=== PATIENT | female | born 1955 | race American Indian/Alaskan Native ===

== ENCOUNTER 2018-01-16 08:14 | Emergency (ER) | payer SELFPAY ==
--- NOTE | 2018-01-16 08:51 | Emergency Department Report ---
ED Psych HPI - General Chief Complaint: Psych Stated Complaint: GENERAL WEAKNESS Time Seen by Provider: 01/16/18 08:42 Source: patient, EMS Mode of arrival: Ambulatory - History of Present Illness Initial Comments: Patient is 62 years old female with history of schizophrenia and bipolar disorder. Patient brought to the ER for evaluation of mental health. Patient pulled off her clothes this and came into the ER waiting area completely naked. Patient is delusional and paranoid. She denied any suicidal or homicidal ideation. Patient also denied any visual or auditory hallucination. MD Complaint: altered mental status - Related Data Allergies Allergy/AdvReac Type Severity Reaction Status Date / Time Unable to Assess Allergy Unverified 01/16/18 08:35 ED Review of Systems ROS: Stated complaint: GENERAL WEAKNESS Other details as noted in HPI Comment: All other systems reviewed and negative Respiratory: denies: cough, shortness of breath, SOB with exertion Cardiovascular: denies: chest pain, palpitations Gastrointestinal: denies: abdominal pain, nausea, diarrhea ED Past Medical Hx - Past Medical History Previous Medical History?: Yes Hx Psychiatric Treatment: Yes - Surgical History Additional Surgical History: Refuse to answer - Social History Smoking Status: Never Smoker ED Physical Exam - General Limitations: No Limitations General appearance: alert, anxious, other (agitated) - Head Head exam: Present: atraumatic, normocephalic, normal inspection - ENT ENT exam: Present: normal exam, normal orophraynx, mucous membranes moist - Neck Neck exam: Present: normal inspection, full ROM. Absent: tenderness, meningismus, lymphadenopathy - Respiratory Respiratory exam: Present: normal lung sounds bilaterally. Absent: respiratory distress, wheezes, rales, rhonchi, chest wall tenderness, accessory muscle use, decreased breath sounds, prolonged expiratory - Cardiovascular Cardiovascular Exam: Present: regular rate, normal rhythm, normal heart sounds - GI/Abdominal GI/Abdominal exam: Present: soft, normal bowel sounds. Absent: distended, tenderness, guarding, rebound, rigid, organomegaly, mass, bruit, pulsatile mass - Extremities Exam Extremities exam: Present: normal inspection, full ROM, normal capillary refill - Back Exam Back exam: Present: normal inspection, full ROM - Neurological Exam Neurological exam: Present: alert, oriented X3, CN II-XII intact, normal gait, reflexes normal. Absent: abnormal gait, motor sensory deficit - Psychiatric Psychiatric exam: Present: agitated, anxious, manic. Absent: homicidal ideation , suicidal ideation - Skin Skin exam: Present: warm, intact, normal color ED Course Vital Signs 01/16/18 08:24 Temperature 97.8 F Pulse Rate 96 H Respiratory 18 Rate Blood Pressure 130/106 O2 Sat by Pulse 99 Oximetry ED Medical Decision Making - Lab Data Result diagrams: 01/16/18 08:52 01/16/18 08:52 Critical care attestation.: If time is entered above; I have spent that time in minutes in the direct care of this critically ill patient, excluding procedure time. ED Disposition Clinical Impression: Acute psychosis Disposition: DC/TX-65 PSY HOSP/PSY UNIT Is pt being admited?: No Condition: Stable
[2018-01-16 09:12] LABS: Basophils # (Auto) 0.1 K/mm3 (0.0-0.1); Basophils % (Auto) 0.6 % (0.0-1.8); Eosinophils # (Auto) 0.2 K/mm3 (0.0-0.4); Eosinophils % (Auto) 1.8 % (0.0-4.3); Hematocrit 52.7 % (30.3-42.9); Lymphocytes # (Auto) 2.3 K/mm3 (1.2-5.4); Lymphocytes % (Auto) 27.9 % (13.4-35.0); Mean Corpuscular HGB Conc 32 % (30-34); Mean Corpuscular Hemoglobin 28 pg (28-32); Mean Corpuscular Volume 86 fl (79-97); Monocytes # (Auto) 0.6 K/mm3 (0.0-0.8); Monocytes % (Auto) 7.7 % (0.0-7.3); Platelet Count 252 K/mm3 (140-440); Red Blood Count 6.17 M/mm3 (3.65-5.03); Red Cell Distribution Width 15.4 % (13.2-15.2)
[2018-01-16 09:27] LABS: BUN/Creatinine Ratio 25; Blood Urea Nitrogen 15 mg/dL (7-17); Calcium 9.7 mg/dL (8.4-10.2); Hemolysis Index 8
[2018-01-17 03:08] LABS: Bilirubin,Urine NEG (Negative); Blood,Urine MOD (Negative); Color,Urine Amber (Yellow); Hyaline Casts,Urine 14 /LPF; Mucus,Urine 2+ /HPF; Urobilinogen,Urine < 2.0 mg/dL (<2.0)
[2018-01-17 03:13] LABS: Amphetamine Screen,Urine PRESUMPTIVE NEGATIVE; Benzodiazepines Screen,Urine PRESUMPTIVE NEGATIVE; Cannabinoid Screen,Urine PRESUMPTIVE NEGATIVE; Cocaine Screen,Urine PRESUMPTIVE NEGATIVE; Methadone Screen,Urine PRESUMPTIVE NEGATIVE; Opiate Screen,Urine PRESUMPTIVE NEGATIVE
--- NOTE | 2018-01-17 17:21 | Consultation ---
History of Present Illness - Reason for Consult Consult date: 01/17/18 Reason for consult: psychiatric Requesting physician: BRODIE PEDRAZA - Chief Complaint Chief complaint: Altered mental status - History of Present Psychiatric Illness 62-year-old female with past psychiatric history of bipolar disorder and schizophrenia was brought to the emergency room for mental health evaluation. Per ER records, patient presented with bizarre behavior after she came to the emergency room including removing her clothes in the emergency room lobby, and also later defecating on the lottery chairs. Patient stated that she was loitering around [employer] parking lot, and somebody called the ambulance. Patient stated "[place] [facility] [place] At the time of presentation to the ER, patient was disheveled with grass in her hair and poor hygiene and grooming. Patient did state that she has been walking around in the last 2 days after she was unable to pay for the hotel that she was staying at. She also reported that she had run out of her medications which include Lexapro and Abilify and trazodone about 2 weeks ago. At this time, patient denied any auditory hallucinations and denied any paranoia and denies any current suicidal or homicidal ideations. She did endorse feeling sad. However she did appear disorganized, with loose associations and appeared to be responding to internal stimuli. Medications and Allergies Allergies Allergy/AdvReac Type Severity Reaction Status Date / Time Unable to Assess Allergy Unverified 01/16/18 08:35 Home Medications Medication Instructions Recorded Confirmed Last Taken Type Unobtainable 01/16/18 01/16/18 Unknown History Past psychiatric history - Past Medical History Past Medical History: other (hypertension) - past Psychiatric treatment and history Psych: Bipolar, Psychosis, Schizophrenia psychiatric treatment history: Patient reported that she has been hospitalized at [facility] and recently at another psychiatric facility in [facility]. She states she has outpatient psychiatrist in [facility]. She has been on many psychotropic medications in the past, and Zyprexa worked the best. Has not been compliant with her psychotropic medications which are prescribed to her recently, namely Lexapro, Abilify and trazodone, and the last time she took them was about 2 weeks ago. - Social History Social history: Lives alone, other (homeless. Patient smokes half a pack of cigarettes per day. Drinks alcohol occasionally. Denies any cannabis or any other drug usage.) Mental Status Exam - Vital signs Last Vital Signs Temp 99.4 F 01/17/18 10:00 Pulse 89 01/17/18 10:00 Resp 18 01/17/18 17:09 BP 124/73 01/17/18 10:00 Pulse Ox 100 01/17/18 10:00 - Exam Orientation: time, person Affect: flat, depressed Mood: anxious Thought content: delusions, ideas of reference Thought Process: Loose Associations, Disorganized Perceptions: none Speech: slow Concentration: distractible Motor activity: normal Level of consciousness: confused Memory: Remote Intact Sleep Symptoms: Difficulty Falling Asleep Interaction: irritable, apathetic Results Result Diagrams: 01/16/18 08:52 01/16/18 08:52 Abnormal lab results 01/16/18 Range/Units 23:14 Urine WBC (Auto) 62.0 H (0.0-6.0) /HPF U Epithel Cells (Auto) 109.0 H (0-13.0) /HPF All other labs normal. Assessment and Plan Assessment and plan: Assessment: 1) psychosis unspecified 2) rule out schizoaffective disorder 3) rule out bipolar disorder Plan: 1) continue 1013, as patient does not appear to be capable of taking care of herself. 2) will start the patient on Zyprexa 5 mg at bedtime to help with psychosis and trazodone 50 mg at bedtime to help with insomnia. 3) Will continue to monitor the patient.
[2018-01-17] MEDS: DESYREL PO SCH (22:27)
[2018-01-18] MEDS ORDERED: ZOFRAN ONE (20:28)
[2018-01-18] MEDS ORDERED: ZOFRAN IM ONE (21:04)
[2018-01-18] MEDS: DESYREL PO SCH (21:37)
--- NOTE | 2018-01-19 15:27 | Progress Note ---
Subjective - Reason for Consult Consult date: 01/19/18 Reason for consult: follow up - Chief Complaint Chief complaint: "I didn't want to go to a vacant house." "I didn't come here for psychiatry." 62-year-old female with past psychiatric history of bipolar disorder and schizophrenia was brought to the emergency room for mental health evaluation. She denies this. Per ER records, patient presented with bizarre behavior after she came to the emergency room including removing her clothes in the emergency room lobby, and also later defecating on the chairs. Today, she is uncooperative. She stated she wants to go back to her hotel room. She said she has a friend named Izzy but states we cannot speak with her. She is agitated and has been yelling and demanding. She is paranoid and disorganized in thought process. Per the record: Has not been compliant with her psychotropic medications which are prescribed to her recently, namely Lexapro, Abilify and trazodone, and the last time she took them was about 2 weeks ago. She took meds as ordered last night. Mental Status Exam - Vital signs Last Vital Signs Temp 99.1 F 01/19/18 10:00 Pulse 87 01/19/18 10:00 Resp 18 01/19/18 14:56 BP 116/75 01/19/18 10:00 Pulse Ox 98 01/19/18 14:56 - Exam Narrative exam: Orientation: time, person Affect: flat Mood: agitated Thought content: delusions Thought Process: Loose Associations, Disorganized Perceptions: denies Speech: loud Concentration: distractible Motor activity: normal Level of consciousness: alert Memory: Remote Intact Sleep Symptoms: Difficulty Falling Asleep Interaction: uncooperative Assessment and Plan Impression: 1) psychosis unspecified 2) rule out schizoaffective disorder 3) rule out bipolar disorder Plan: 1) continue 1013, as patient does not appear to be capable of taking care of herself. 2) Increase zyprexa 10 mg at bedtime to help with psychosis and trazodone 50 mg at bedtime to help with insomnia. 3) Will continue to monitor the patient.
[2018-01-19] MEDS: DESYREL PO SCH (22:58)
--- NOTE | 2018-01-20 18:25 | Progress Note ---
Subjective - Reason for Consult Consult date: 01/20/18 Reason for consult: follow up - Chief Complaint Chief complaint: "I didn't want my medicines changed." 62-year-old female with past psychiatric history of bipolar disorder and schizophrenia was brought to the emergency room for mental health evaluation. Her nurse reports she initially refused her zyprexa but took it today. She is reported to be less agitated. She was able to participate in interview today. She reports her medications of abilify 20mg, lexapro 10mg daily, and trazodone 50mg hs. She states she had run out of meds x 1-2 weeks prior to this ER visit. She states she was treated in [facility] 1 month ago, where her medications were increased. She does not want them changed. She acknowledged feeling better. She denies SI/HI. She denies AVH. She was observed dancing in the doorway but not agitation observed. She is interacting appropriately with peers. She reports sleep and appetite is fair. Mental Status Exam - Vital signs Last Vital Signs Temp 97.6 F 01/20/18 12:50 Pulse 89 01/20/18 12:50 Resp 18 01/20/18 12:50 BP 132/82 01/20/18 12:50 Pulse Ox 99 01/20/18 12:50 - Exam Narrative exam: Orientation: time, person, place Affect: constricted Mood: irritable Thought content: denies SI/HI. Thought Process: circumstantial Perceptions: denies Speech: regular rate Concentration: distractible Motor activity: normal Level of consciousness: alert Memory: Remote Intact Sleep Symptoms: fair Interaction: cooperative Assessment and Plan Impression: 1) psychosis unspecified 2) rule out schizoaffective disorder 3) rule out bipolar disorder Mental status appears to be improving. [facility] Plan: 1) continue 1013, as patient does not appear to be capable of taking care of herself. 2) Change zyprexa to abilify. She states the abilify was working well for her. Continue trazodone 50 mg at bedtime to help with insomnia. Hold lexapro. r/o ivana 3) Will continue to monitor the patient.
[2018-01-20] MEDS ORDERED: PEPCID PO SCH (19:00)
[2018-01-20] MEDS: DESYREL PO SCH (23:06)
--- NOTE | 2018-01-21 10:48 | Progress Note ---
Subjective - Reason for Consult Consult date: 01/21/18 Reason for consult: Psychiatry Follow-up - Chief Complaint Chief complaint: "I want to go" 62-year-old female with past psychiatric history of bipolar disorder and schizophrenia was brought to the emergency room for mental health evaluation. Today the patient is loud and angry during the assessment. Upon my arrival to her room, she was observed staring at the wall. She was asked how she ended up at the hospital, she stated, "I wanted a cigarette at [facility] and I was brought to the hospital." She is evasive throughout the interview. She denies SI/HI's and VH's. She would not confirm or deny AVH's when asked. No indications of side effects of her medications. Mental Status Exam - Vital signs Last Vital Signs Temp 97.6 F 01/20/18 12:50 Pulse 89 01/20/18 12:50 Resp 18 01/20/18 12:50 BP 132/82 01/20/18 12:50 Pulse Ox 99 01/20/18 12:50 - Exam Narrative exam: MSE: Appearance: angry Behavior: regular eye contact Speech: regular rate and loud tone Mood: evasive Affect: flat Thought Process: circumstantial Thought Content: denies SI/HI's, would not confirm or deny AVH's Motor Activity: ambulating Cognition: A/O x 3 Insight: poor Judgment: poor Assessment and Plan Impression: Unspecified Psychosis. Today the patient is loud and angry during the assessment. DDx: R/o Schizoaffective DO, R/O Schizophrenia, R/O Bipolar DO Recommendation/Plan: Continue 1013 with placement to inpatient to psy services. Continue Abilify 15 mg PO daily for psychosis and Trazodone 50 mg HS for sleep. Discussed possible metabolic side effects of Abilify with patient. Discussed possible suicidality/medcation induced ivana with patient reference Trazodone. The patient has elevated WBC's (26)/Epithel Cells (109) in her urine per her admission 01/16/2018. Her assigned nurse was informed.
[2018-01-21] MEDS: ABILIFY PO SCH (13:11)
[2018-01-21] MEDS ORDERED: VERSED IM ONE ×3 (15:19→19:00)
[2018-01-21] MEDS: DESYREL PO SCH (22:04)
--- NOTE | 2018-01-22 11:58 | Progress Note ---
Subjective - Reason for Consult Consult date: 01/22/18 Reason for consult: Psychiatry Follow-up - Chief Complaint Chief complaint: "I am mad at myself" 62-year-old female with past psychiatric history of bipolar disorder and schizophrenia was brought to the emergency room for mental health evaluation. Today the patient is calm and cooperative during the assessment. She stated being "mad" at herself because of the way she ended up at the ER. She stated that she could not return to her hotel because she had a balance due, so she decided to go to [facility]. She stated that she slept there for 3 days. She is adamant that she asked for a cigarette and the EMS will called. Once the EMS arrived she admitted to being upset and refused to talk with them, so she was brought to the ER. Also, she stated that she lost her ID while walking to [facility]. She stated that [facility]. She stated that she was angry yesterday, because she felt "embarrassed." She denies SI/HI's and AVH's. She denies any side effects of her medications. Mental Status Exam - Vital signs Last Vital Signs Temp 98.2 F 01/21/18 13:48 Pulse 82 01/21/18 22:00 Resp 18 01/22/18 04:00 BP 125/71 01/21/18 22:00 Pulse Ox 98 01/22/18 04:00 - Exam Narrative exam: MSE: Appearance: calm, cooperative Behavior: regular eye contact Speech: regular rate and tone Mood: "better" Affect: congruent to mood Thought Process: linear Thought Content: denies SI/HI's and AVH's Motor Activity: ambulatory Cognition: A/O x 3 Insight: appropriate Judgment: appropriate Assessment and Plan Impression: Unspecified Psychosis. Today the patient is calm and cooperative during the assessment. DDx: R/O Schizoaffective DO, R/O Schizophrenia, R/O Bipolar DO Recommendation/Plan: Rescind 1013. The patient can [facility] up [facility]. Continue Abilify 15 mg PO daily and Trazodone 50 mg HS. Discussed possible metabolic side effects of Abilify with patient. Discussed possible suicidality/medcation induced ivana with patient reference Trazodone.
[2018-01-22] MEDS: ABILIFY PO SCH (14:15)
--- NOTE | 2018-01-22 15:06 | Event Note ---
Date: 01/22/18 The patient's 1013 has been discontinued by the psychiatry team. The patient is pleasant, calm and cooperative, not a homicidal nor suicidal. She endorses no medical complaints at this time. She indicates she is going to follow up at the [facility]. She is given a 2 week refill on her trazodone and Abilify. She will be discharged at this time. Vital Signs 01/16/18 01/16/18 01/17/18 08:24 19:30 10:00 Temperature 97.8 F 99.5 F 99.4 F Pulse Rate 96 H 82 89 Respiratory 18 18 18 Rate Blood Pressure 130/106 Blood Pressure 126/74 124/73 [Left] O2 Sat by Pulse 99 98 100 Oximetry 01/17/18 01/17/18 01/17/18 17:09 17:31 20:11 Temperature 98.8 F Pulse Rate 70 Respiratory 18 18 18 Rate Blood Pressure 137/68 Blood Pressure [Left] O2 Sat by Pulse 98 100 Oximetry 01/18/18 01/18/18 01/18/18 10:00 11:19 19:24 Temperature 98.9 F 99.3 F Pulse Rate 84 78 Respiratory 16 18 18 Rate Blood Pressure 131/75 Blood Pressure 117/74 [Left] O2 Sat by Pulse 97 100 98 Oximetry 01/19/18 01/19/18 01/19/18 10:00 14:56 20:18 Temperature 99.1 F 98.3 F Pulse Rate 87 62 Respiratory 18 18 18 Rate Blood Pressure 124/60 Blood Pressure 116/75 [Left] O2 Sat by Pulse 98 98 98 Oximetry 01/20/18 01/21/18 01/21/18 12:50 13:48 17:52 Temperature 97.6 F 98.2 F Pulse Rate 89 85 Respiratory 18 18 Rate Blood Pressure Blood Pressure 132/82 134/64 [Left] O2 Sat by Pulse 99 96 96 Oximetry 01/21/18 01/22/18 01/22/18 22:00 04:00 13:43 Temperature Pulse Rate 82 Respiratory 18 18 18 Rate Blood Pressure Blood Pressure 125/71 [Left] O2 Sat by Pulse 98 98 98 Oximetry Lab Results 01/16/18 01/16/18 01/16/18 Range/Units 08:52 08:52 08:52 WBC (4.5-11.0) K/mm3 RBC (3.65-5.03) M/mm3 Hgb (10.1-14.3) gm/dl Hct (30.3-42.9) % MCV (79-97) fl MCH (28-32) pg MCHC (30-34) % RDW (13.2-15.2) % Plt Count (140-440) K/mm3 Lymph % (Auto) (13.4-35.0) % Isabella % (Auto) (0.0-7.3) % Eos % (Auto) (0.0-4.3) % Baso % (Auto) (0.0-1.8) % Lymph # (1.2-5.4) K/mm3 Isabella # (0.0-0.8) K/mm3 Eos # (0.0-0.4) K/mm3 Baso # (0.0-0.1) K/mm3 Seg Neutrophils % (40.0-70.0) % Seg Neutrophils # (1.8-7.7) K/mm3 Sodium 143 (137-145) mmol/L Potassium 3.5 L (3.6-5.0) mmol/L Chloride 100.8 (98-107) mmol/L Carbon Dioxide 27 (22-30) mmol/L Anion Gap 19 mmol/L BUN 15 (7-17) mg/dL Creatinine 0.6 L (0.7-1.2) mg/dL Estimated GFR > 60 ml/min BUN/Creatinine Ratio 25 % Glucose 128 H (65-100) mg/dL Calcium 9.7 (8.4-10.2) mg/dL Urine Color (Yellow) Urine Turbidity (Clear) Urine pH (5.0-7.0) Ur Specific Waldo (1.003-1.030) Urine Protein (Negative) mg/dL Urine Glucose (UA) (Negative) mg/dL Urine Ketones (Negative) mg/dL Urine Blood (Negative) Urine Nitrite (Negative) Urine Bilirubin (Negative) Urine Urobilinogen (<2.0) mg/dL Ur Leukocyte Esterase (Negative) Urine WBC (Auto) (0.0-6.0) /HPF Urine RBC (Auto) (0.0-6.0) /HPF U Epithel Cells (Auto) (0-13.0) /HPF Hyaline Casts /LPF Urine Mucus /HPF Salicylates < 0.3 L (2.8-20.0) mg/dL Urine Opiates Screen Urine Methadone Screen Acetaminophen < 5.0 L (10.0-30.0) ug/mL Ur Barbiturates Screen Ur Phencyclidine Scrn Ur Amphetamines Screen U Benzodiazepines Scrn Urine Cocaine Screen U Marijuana (THC) Screen Drugs of Abuse Note Plasma/Serum Alcohol (0-0.07) % 01/16/18 01/16/18 01/16/18 Range/Units 08:52 08:52 23:14 WBC 8.3 (4.5-11.0) K/mm3 RBC 6.17 H (3.65-5.03) M/mm3 Hgb 17.0 H (10.1-14.3) gm/dl Hct 52.7 H (30.3-42.9) % MCV 86 (79-97) fl MCH 28 (28-32) pg MCHC 32 (30-34) % RDW 15.4 H (13.2-15.2) % Plt Count 252 (140-440) K/mm3 Lymph % (Auto) 27.9 (13.4-35.0) % Isabella % (Auto) 7.7 H (0.0-7.3) % Eos % (Auto) 1.8 (0.0-4.3) % Baso % (Auto) 0.6 (0.0-1.8) % Lymph # 2.3 (1.2-5.4) K/mm3 Isabella # 0.6 (0.0-0.8) K/mm3 Eos # 0.2 (0.0-0.4) K/mm3 Baso # 0.1 (0.0-0.1) K/mm3 Seg Neutrophils % 62.0 (40.0-70.0) % Seg Neutrophils # 5.1 (1.8-7.7) K/mm3 Sodium (137-145) mmol/L Potassium (3.6-5.0) mmol/L Chloride (98-107) mmol/L Carbon Dioxide (22-30) mmol/L Anion Gap mmol/L BUN (7-17) mg/dL Creatinine (0.7-1.2) mg/dL Estimated GFR ml/min BUN/Creatinine Ratio % Glucose (65-100) mg/dL Calcium (8.4-10.2) mg/dL Urine Color Marian (Yellow) Urine Turbidity Cloudy (Clear) Urine pH 5.0 (5.0-7.0) Ur Specific Waldo 1.028 (1.003-1.030) Urine Protein 30 mg/dl (Negative) mg/dL Urine Glucose (UA) Neg (Negative) mg/dL Urine Ketones Neg (Negative) mg/dL Urine Blood Mod (Negative) Urine Nitrite Neg (Negative) Urine Bilirubin Neg (Negative) Urine Urobilinogen < 2.0 (<2.0) mg/dL Ur Leukocyte Esterase Mod (Negative) Urine WBC (Auto) 62.0 H (0.0-6.0) /HPF Urine RBC (Auto) 78.0 (0.0-6.0) /HPF U Epithel Cells (Auto) 109.0 H (0-13.0) /HPF Hyaline Casts 14 /LPF Urine Mucus 2+ /HPF Salicylates (2.8-20.0) mg/dL Urine Opiates Screen Urine Methadone Screen Acetaminophen (10.0-30.0) ug/mL Ur Barbiturates Screen Ur Phencyclidine Scrn Ur Amphetamines Screen U Benzodiazepines Scrn Urine Cocaine Screen U Marijuana (THC) Screen Drugs of Abuse Note Plasma/Serum Alcohol < 0.01 (0-0.07) % 01/16/18 Range/Units 23:14 WBC (4.5-11.0) K/mm3 RBC (3.65-5.03) M/mm3 Hgb (10.1-14.3) gm/dl Hct (30.3-42.9) % MCV (79-97) fl MCH (28-32) pg MCHC (30-34) % RDW (13.2-15.2) % Plt Count (140-440) K/mm3 Lymph % (Auto) (13.4-35.0) % Isabella % (Auto) (0.0-7.3) % Eos % (Auto) (0.0-4.3) % Baso % (Auto) (0.0-1.8) % Lymph # (1.2-5.4) K/mm3 Isabella # (0.0-0.8) K/mm3 Eos # (0.0-0.4) K/mm3 Baso # (0.0-0.1) K/mm3 Seg Neutrophils % (40.0-70.0) % Seg Neutrophils # (1.8-7.7) K/mm3 Sodium (137-145) mmol/L Potassium (3.6-5.0) mmol/L Chloride (98-107) mmol/L Carbon Dioxide (22-30) mmol/L Anion Gap mmol/L BUN (7-17) mg/dL Creatinine (0.7-1.2) mg/dL Estimated GFR ml/min BUN/Creatinine Ratio % Glucose (65-100) mg/dL Calcium (8.4-10.2) mg/dL Urine Color (Yellow) Urine Turbidity (Clear) Urine pH (5.0-7.0) Ur Specific Waldo (1.003-1.030) Urine Protein (Negative) mg/dL Urine Glucose (UA) (Negative) mg/dL Urine Ketones (Negative) mg/dL Urine Blood (Negative) Urine Nitrite (Negative) Urine Bilirubin (Negative) Urine Urobilinogen (<2.0) mg/dL Ur Leukocyte Esterase (Negative) Urine WBC (Auto) (0.0-6.0) /HPF Urine RBC (Auto) (0.0-6.0) /HPF U Epithel Cells (Auto) (0-13.0) /HPF Hyaline Casts /LPF Urine Mucus /HPF Salicylates (2.8-20.0) mg/dL Urine Opiates Screen Presumptive negative Urine Methadone Screen Presumptive negative Acetaminophen (10.0-30.0) ug/mL Ur Barbiturates Screen Presumptive negative Ur Phencyclidine Scrn Presumptive negative Ur Amphetamines Screen Presumptive negative U Benzodiazepines Scrn Presumptive negative Urine Cocaine Screen Presumptive negative U Marijuana (THC) Screen Presumptive negative Drugs of Abuse Note Disclamer Plasma/Serum Alcohol (0-0.07) %
[2018-01-22 15:33] VITALS: BP 129/99
== END 2018-01-22 15:38 | disposition home or self-care (01) ==
LOC: EEVIPCON 08:14 → ED 08:14
DX: F23 Brief psychotic disorder (principal); Z88.8 Allergy status to other drugs, medicaments and biological substances
CPT/HCPCS: 36415; 80048; 80307; 81001; 85025; 96372; 99284; G0480; J2250; J2405; 80320

== ENCOUNTER 2018-03-26 03:01 | Emergency (ER) | payer SELFPAY ==
[2018-03-26 04:49] LABS: Basophils % (Auto) 0.5 % (0.0-1.8); Eosinophils % (Auto) 0.2 % (0.0-4.3); Hematocrit 47.1 % (30.3-42.9); Hemoglobin 15.8 gm/dl (10.1-14.3); Lymphocytes # (Auto) 1.8 K/mm3 (1.2-5.4); Lymphocytes % (Auto) 19.5 % (13.4-35.0); Mean Corpuscular HGB Conc 34 % (30-34); Mean Corpuscular Hemoglobin 28 pg (28-32); Mean Corpuscular Volume 84 fl (79-97); Monocytes # (Auto) 0.8 K/mm3 (0.0-0.8); Monocytes % (Auto) 8.4 % (0.0-7.3); Platelet Count 237 K/mm3 (140-440); Red Blood Count 5.59 M/mm3 (3.65-5.03); Red Cell Distribution Width 14.8 % (13.2-15.2)
[2018-03-26 05:03] LABS: BUN/Creatinine Ratio 19; Blood Urea Nitrogen 13 mg/dL (7-17); Calcium 9.2 mg/dL (8.4-10.2); Hemolysis Index 2
[2018-03-26] MEDS ORDERED: NACL 0.9% 1000 ML 1,000 ML IV ONE (06:26)
[2018-03-26] MEDS ORDERED: ZOFRAN IV ONE (06:27)
[2018-03-26 06:55] LABS: Creatine Kinase MB 6.1 ng/mL (0.0-4.0)
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
[2018-03-26] MEDS ORDERED: DESYREL PO ONE ×2 (08:51→11:08)
[2018-03-26] MEDS ORDERED: TYLENOL PO PRN (08:52)
[2018-03-26] MEDS ORDERED: MILK OF MAGNESIA PO PRN (08:52)
[2018-03-26] MEDS ORDERED: ALUM-MAG HYDROX-SIMETH 200-200-20MG/5ML PO PRN (08:52)
[2018-03-26] MEDS: ABILIFY PO SCH (11:25)
[2018-03-26] MEDS ORDERED: GEODON IM ONE (15:23)
[2018-03-26] MEDS ORDERED: GEODON IM PRN (15:24)
[2018-03-27 04:29] LABS: Bacteria,Urine 2+ /HPF (Negative); Bilirubin,Urine NEG (Negative); Blood,Urine NEG (Negative); Color,Urine Yellow (Yellow); Mucus,Urine 3+ /HPF
[2018-03-27 04:44] LABS: Amphetamine Screen,Urine PRESUMPTIVE NEGATIVE; Benzodiazepines Screen,Urine PRESUMPTIVE NEGATIVE; Cannabinoid Screen,Urine PRESUMPTIVE NEGATIVE; Cocaine Screen,Urine PRESUMPTIVE NEGATIVE; Methadone Screen,Urine PRESUMPTIVE NEGATIVE; Opiate Screen,Urine PRESUMPTIVE NEGATIVE
[2018-03-27] MEDS: ABILIFY PO SCH ×2 (10:07→22:01)
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
[2018-03-27] MEDS ORDERED: ZOFRAN IM PRN (19:59)
[2018-03-27] MEDS ORDERED: DESYREL PO PRN (20:43)
[2018-03-28] MEDS: ABILIFY PO SCH ×2 (09:37→22:29)
--- NOTE | 2018-03-28 13:20 | Progress Note ---
Subjective - Reason for Consult Consult date: 03/28/18 Reason for consult: Psychiatry Follow-up - Chief Complaint Chief complaint: "[place]" 62-year-old female who presents to emergency room with psychosis. Today the patient is cooperative, but disorganized during the assessment. She is adamant that someone is stealing her money while being in the ER. She had to be redirected several times to keep her on topic. She stated, 'You don't understand , things will get hectic." She would not elaborate more when asked about her statement. She denies SI/HI's and AVH's. She denies any side effects of her medications. Mental Status Exam - Vital signs Last Vital Signs Temp 98.9 F 03/28/18 10:00 Pulse 86 03/28/18 10:00 Resp 18 03/28/18 10:00 BP 150/87 03/28/18 10:00 Pulse Ox 94 03/28/18 10:00 - Exam Narrative exam: MSE: Appearance: cooperative Behavior: regular eye contact Speech: regular rate and tone Mood: "okay" Affect: flat Thought Process: disorganized Thought Content: denies SI/HI's and AVH's, delusional Motor Activity: ambulatory Cognition: A/O x 3 Insight: poor Judgment: poor Assessment and Plan Impression: Unspecified Psychosis. Today the patient is cooperative, but disorganized during the assessment. DDx: Schizophrenia, R/O Bipolar DO Recommendation/Plan: Continue 1013 with placement to inpatient psy services. Continue Abilify 20 mg PO HS for mood/psychosis and Trazodone 50 mg PO HS PRN for sleep. Discussed possible metabolic side effects of Abilify with the patient. Discussed possible suicidality/medication induced ivana with the patient reference Trazodone.
[2018-03-28 20:32] VITALS: BP 144/81
--- NOTE | 2018-03-29 13:38 | Progress Note ---
Subjective - Reason for Consult Consult date: 03/29/18 Reason for consult: Psychiatry Follow-up - Chief Complaint Chief complaint: "I am so much better" 62-year-old female who presents to emergency room with psychosis. Today the patient is calm and cooperative during the assessment. She stated that she was upset and answered questions yesterday "inappropriately." She stated [facility]. She stated that she maybe homeless because she reside at a hotel. She denies SI/HI's and AVH's. She denies any side effects of her medications. Mental Status Exam - Vital signs Last Vital Signs Temp 98.9 F 03/28/18 19:30 Pulse 71 03/28/18 19:30 Resp 16 03/28/18 19:30 BP 144/81 03/28/18 19:30 Pulse Ox 96 03/28/18 19:30 - Exam Narrative exam: MSE: Appearance: calm, cooperative Behavior: regular eye contact Speech: regular rate and tone Mood: "okay" Affect: congruent to mood Thought Process: logical Thought Content: denies SI/HI's and AVH's Motor Activity: ambulatory Cognition: A/O x 3 Insight: fair Judgment: fair Assessment and Plan Impression: Unspecified Psychosis. Today the patient is calm and cooperative during the assessment. DDx: Schizophrenia, R/O Bipolar DO Recommendation/Plan: Rescind 1013. Continue Abilify 20 mg PO HS for mood/ psychosis and Trazodone 50 mg PO HS PRN for sleep. Discussed possible metabolic side effects of Abilify with the patient. Discussed possible suicidality/ medication induced ivana with the patient reference Trazodone. The patient can follow up with the [facility] for outpatient psy services. Case Mgmt involvement, the patient may need assistance with placement.
--- NOTE | 2018-03-29 15:26 | Emergency Department Report ---
Blank Doc - Documentation Documentation: 62-year-old female with history of schizophrenia is an initially with active psychosis. She has remained in ED for several days, symptoms have improved. Patient currently not psychotic, no SI, no HI. 1013 has been rescinded. Patient to follow-up outpatient resources. Patient also has UTI on the labs, will give prescription for antibiotics.
== END 2018-03-29 16:30 | disposition home or self-care (01) ==
LOC: ED 03:01 → EEVIPCON 03:01 → ED 03-29 16:30
DX: F23 Brief psychotic disorder (principal); F20.3 Undifferentiated schizophrenia; Z88.5 Allergy status to narcotic agent; Z59.0 Homelessness
CPT/HCPCS: 36415; 80048; 80307; 81001; 82550; 82553; 83735; 84703; 85025; 87086; 96361; 96372; 96374; 99284; G0480; J2405; J3486; J7030; 80320